=== PATIENT | male | born 1945 | race Caucasian/White ===

== ENCOUNTER 2017-02-16 07:55 | Emergency (ER) | payer MEDICARE, OTHER ==
[~2017-02-16] VITALS: Ht 170.2 cm; Wt 97.7 kg
[~2017-02-16 07:55] MED LIST: CA CHLORIDE 10% 10 ML SYRINGE ONE; EPINEPHrine 0.1 MG/ML SYG ONE; LIDOCAINE 100 MG SYRINGE ONE; NA BICARBONATE 8.4% 50 ML SYG ONE
--- NOTE | 2017-02-16 08:17 | ERD ---
ER Documentation Chief Complaint Date/Time DATE: 02/16/17 TIME: 08:08 Chief Complaint Cardiac arrest HPI 71-year-old male brought into the emergency department by ambulance in cardiac arrest. Patient complained of chest pain somewhere around 7:00 this morning. He then collapsed in cardiac arrest. Paramedics were on scene at approximately 7:15 AM. There was no CPR in progress upon their arrival. Patient was in ventricular fibrillation. Full ACLS protocol from the paramedics for over half an hour with no return of spontaneous circulation. Multiple episodes of defibrillation as well as IV medications including calcium , bicarb, and amiodarone. Patient arrived in ongoing cardiac arrest having been down for approximately 45 minutes prior to arrival. ROS All systems reviewed and are negative except as per history of present illness. FmHx Noncontributory for chief complaint Physical Exam Physical Exam GENERAL: Patient is chronically ill-appearing and arrives in full cardiac arrest. HEENT: Pupils fixed and dilated, no evidence of head trauma airway not intubated with clear secretions in the airway NECK: No obvious trauma noted LUNGS: [id number] ongoing HEART: ACLS and CPR ongoing ABDOMEN: Soft, mildly distended. No obvious trauma or tenderness EXTREMITIES: 2+ edema both lower extremities no cyanosis NEURO: GCS of 111 with fixed and dilated pupils. SKIN: Pale cool, dialysis catheter noted left upper chest Procedures/MDM ER course: Patient was taken immediately to her room where he was continued on ACLS protocol. Endotracheal Intubation by me: Intubated via direct laryngoscopy Intubation confirmed by colorimetric CO2, equal breath sounds, quiet over the stomach. Despite ACLS protocol and ongoing medications and defibrillation attempts, patient had no return of spontaneous circulation with a non-perfusing rhythm for approximately 1 hour. Patient was then pronounced . Departure Diagnosis: Primary Impression: Cardiac arrest Additional Impressions: Ventricular fibrillation Renal failure Condition: Critical JESSICA LINARES Feb 16, 2017 08:17
== END 2017-02-16 18:34 | disposition expired ==
LOC: E/R 07:55
DX: I46.9 Cardiac arrest, cause unspecified (principal); I49.01 Ventricular fibrillation; N17.9 Acute kidney failure, unspecified
CPT/HCPCS: 31500; 92950; J0171; J2001